=== PATIENT | female | born 1940 | race Caucasian/White ===

== ENCOUNTER → 2018-09-05 14:47 | Outpatient (CLI) | payer MEDICARE, SELFPAY ==
--- NOTE | 2018-09-05 | OV.WND_ITS ---
Progress Note Details Patient Name: Pippa Groves Patient Number: [id number] PatientPatientDate: 09/05/2018 Clinician: Henrietta aDi Physician / Utility Worker Film Processing: Marbin Vaughn SUBJECTIVE Chief Complaint This information was obtained from the patient Pressure ulcers on buttocks. Allergies penicillin V potassium (Severity: Severe, Reaction: hives), simvastatin ( Severity: Moderate, Reaction: headache), Demerol (Severity: Severe, Reaction: hypotension) HPI This information was obtained from the patient 09/05/18. Seen by Dr. Vaughn. The patient's new to our clinic and presents with two gluteal pressure ulcers that have been present for about one year. She reports pain at the ulcer sites and spends much of her day sitting due to morbid obesity and pain in her knees when standing. Her caregiver feels the ulcers actually appear to be improving recently since the patient's spending more time in her hospital bed and less in her chair. Family History This information was obtained from the patient Cancer - Mother, Diabetes - Father, Hypertension - Mother, Father, Sibling, Kidney Disease - Father Social History This information was obtained from the patient Former smoker - Quit in 1981, Alcohol Use - None, Caffeine Use, Children, Lives in - Private home with daughter, Self Care and Mobility - Daughter is caregiver Past Medical History This information was obtained from the patient Patient has a medical history of: Hypertension Severe Osteoarthritis Obesity Asthma Hyperlipidemia Sciatica Polymyalgia Rheumatica Surgical History This information was obtained from the patient Patient has a surgical history of: Total abdominal hysterectomy Appendectomy Complaints and Symptoms This information was obtained from the patient Patient complains of: General Notes: I have reviewed and concur with the Review of Systems and Past Family Social History documents completed by the clinician, I have reviewed and concur with the Wound Assessment document completed by the clinician Integumentary (Hair/Skin/Nails): Open Sore Musculoskeletal: Assistive Devices, Muscle Weakness Prior Wound History: Drainage, Pain Patient denies complaints or symptoms related to: Neurological: Loss of Protective Sensation Respiratory: Shortness of Breath General Notes: up to date. Medications morphine ER 30 mg tablet,extended release oral 1 1 tablet extended release oral take at bedtime nystatin 100,000 unit/mL oral suspension oral 1 1 suspension oral twice daily Claritin 10 mg tablet oral 1 1 tablet oral once daily Atacand 16 mg tablet oral 1 1 tablet oral once daily albuterol sulfate HFA 90 mcg/actuation aerosol inhaler inhalation 1 1 HFA aerosol inhaler inhalation PRN amlodipine 10 mg tablet oral 1 1 tablet oral once daily cranberry 400 mg capsule oral 1 1 capsule oral hydrocodone 10 mg-acetaminophen 325 mg tablet oral 1 1 tablet oral every 6 hours as needed metronidazole 0.75 % topical gel topical 1 1 gel topical hydrochlorothiazide 25 mg tablet oral 1 1 tablet oral once daily gentamicin 0.1 % topical ointment topical ointment topical once daily for 7 days for infected ulcer Vitamin D3 1,000 unit capsule oral 1 1 capsule oral once daily OBJECTIVE Constitutional Well developed. Alert. Clean appearing.. Temperature: 98.4 ?F (36.89 ?C), Pulse : 78 bpm, Respiratory Rate: 16 breaths/min, Blood Pressure: 122/74 mmHg, Pulse Oximetry: 94 %. Gastrointestinal (GI): Obese. Nondistended.. Integumentary (Hair, Skin) No periwound erythema, warmth, or significant drainage. No periwound rashes appreciated or noted otherwise.. Refer to appropriate clinician wound documentation for this visit; right and left gluteal pressure ulcers extend to subcut with bases partially covered with pink granulation, remainder fibrin and slough. Wound #1 Right Buttock is a chronic Stage 2 Pressure Injury Pressure Ulcer and has received a status of Not Healed. Initial wound encounter measurements are 0.4cm length x 0.2cm width x 0.1cm depth, with an area of 0.08 sq cm and a volume of 0.008 cubic cm. No tunneling has been noted. No sinus tract has been noted. No undermining has been noted. There was no drainage noted. The wound margin is attached. Wound bed has No epithelialization, No eschar, Yes slough, No granulation. The periwound skin texture is normal. The periwound skin moisture is normal. The periwound skin color is normal. The temperature of the periwound skin is WNL. Periwound skin does not exhibit signs or symptoms of infection. Local Pulse is N/A. General Notes: Covered in dried exudate. Wound #2 Left Buttock is a chronic Stage 2 Pressure Injury Pressure Ulcer and has received a status of Not Healed. Initial wound encounter measurements are 0.4cm length x 0.3cm width x 0.3cm depth, with an area of 0.12 sq cm and a volume of 0.036 cubic cm. No tunneling has been noted. No sinus tract has been noted. No undermining has been noted. There is a moderate amount of serous drainage noted which has no odor. The wound margin is attached. Wound bed has No epithelialization, No eschar, Yes slough, Yes pink, firm granulation. The periwound skin texture is normal. The periwound skin moisture is normal. The periwound skin color is normal. The temperature of the periwound skin is WNL. Periwound skin does not exhibit signs or symptoms of infection. Local Pulse is N/A. Neurological: Cranial nerves grossly intact with symmetric function normal by informal observation.. ASSESSMENT Active Problems ICD-10 (Encounter Diagnosis) L89.43 - Pressure ulcer of contiguous site of back, buttock and hip, stage 3 (Encounter Diagnosis) E66.01 - Morbid (severe) obesity due to excess calories PLAN Wound Orders: Wound #1 Right Buttock Anesthetic Topical Xylocaine to wound bed. - In clinic only. Cleanser Cleanse Wound: - Normal saline and gauze, may use distilled water at home. May Shower. - Wash well with distilled water and gauze when ever soiled. Topical Treatments Antibiotic/Antimicrobial Ointment/Cream. - Gentamicin ointment. Dressings Cover and secure with: - Silicone bordered foam. KerraMax ordered through your insurance. Change Dressing: - Every other day or more as needed if dressing comes off or gets soiled. Additional Orders: Topical Treatments Barrier ointment to protect surround skin. - Zinc based barrier cream can be used in groin area as needed. Off-Loading Wheelchair Cushion. - EHOB cushion given to patient in clinic. Brochure for other EHOB products given. Turn every 2 hours. Avoid position directing pressure to Wound site. Limit side lying to 30 degree tilt. Limit HOB elevation to 30 degrees in bed. - Prop yourself up with pillows while in bed. Follow-Up Appointments Return Appointment: - - One week. Other information: If you develop fever, chills, increased pain, drainage, redness or swelling please call our office. If after hours, respond to the ER. Should you experience any significant changes in your wound(s) or have any questions regarding your home care instructions please contact the wound center @ [phone]. If after hours, contact your primary care physician or go to the hospital emergency room. Scribing Attestation I attest, as the nurse, that I scribed these orders for the physician. Laboratory: Culture Wound Medications prescribed: gentamicin - topical 0.1 % ointment once daily for 7 days for infected ulcer starting 09/05/2018 General Notes: Will call with culture results if any oral antibiotics are required. I've reviewed the clinician's documentation and agree with the evaluation and plan as written. Also, I've cultured the left gluteal ulcer and started treating with topical gentamicin. I've also reinforced the need to optimize offloading measures both while in her wheelchair and in bed. Electronic Signature(s) Signed By: Date: Marbin Vaughn MD 09/06/2018 06:59:08 Entered By: Marbin Vaughn on 09/06/2018 06:28:02
== END ==
PROVIDERS: Family Provider Internal Medicine; PCP Internal Medicine; Visit Provider Internal Medicine
DX: L89.312 Pressure ulcer of right buttock, stage 2 (principal); L89.322 Pressure ulcer of left buttock, stage 2; E66.01 Morbid (severe) obesity due to excess calories; I10 Essential (primary) hypertension
CPT/HCPCS: 87070; 87075; 87077; 87147; 87186; 87205; 99214

== ENCOUNTER → 2020-10-03 14:52 | Outpatient (ROUT) | payer MEDICARE, SELFPAY ==
[2020-10-03 15:15] LABS: Add Manual Diff / Slide Review NO; Basophils Absolute Auto 100 /uL (0-100); Basophils Percent Auto 0.9 % (0-2); Eosinophils Absolute Auto 400 /uL (0-450); Eosinophils Percent Auto 5.2 % (2-4); Hematocrit 38.1 % (36-46); Hemoglobin 12.6 g/dL (12.0-16.0); Lymphocytes Absolute Auto 1600 /uL (1100-4500); Lymphocytes Percent Auto 24.3 % (25-40); Mean Corpuscular Hemoglobin 29.1 PG (26-34); Mean Corpuscular Volume 88.2 fL (80-100); Monocytes Absolute Auto 500 /uL (0-900); Neutrophils Absolute Auto 4200 /uL (1500-7000); Neutrophils Percent Auto 62.6 % (50-75); Platelet Count 261 X10^3/uL (150-400); Red Blood Cell Count 4.32 X10^6/uL (4.0-5.2); Red Cell Distribution Width 13.7 % (11.6-14.8); White Blood Cell Count 6.7 X10^3/uL (4.5-11.0)
[2020-10-03 15:21] LABS: Alanine Aminotransferase 8 IU/L (<35); Albumin 3.7 g/dL (3.5-5.0); Alkaline Phosphatase 85 U/L (38-126); Aspartate Aminotransferase 20 IU/L (14-36); BUN Creatinine Ratio 23.4 (6-22); Bilirubin Total 0.6 mg/dL (0.2-1.3); Blood Urea Nitrogen 15 mg/dL (7-17); Calcium 9.5 mg/dL (8.4-10.2); Carbon Dioxide 39 mmol/L (22-32); Chloride 93 mmol/L (98-107); Estimated Glomerular Filt Rate > 60.0 mL/min (>60); Globulin 3.6 g/dL (1.7-4.1); Glucose 101 mg/dL (80-110); HEMOLYSIS 21 (0-50); Potassium 3.5 mmol/L (3.4-5.1); Sodium 134 mmol/L (137-145); Total Protein 7.3 g/dL (6.3-8.2)
== END ==
PROVIDERS: Family Provider Internal Medicine; PCP Internal Medicine; Visit Provider Internal Medicine
DX: E66.9 Obesity, unspecified (principal); I10 Essential (primary) hypertension
CPT/HCPCS: 80053; 85025

== ENCOUNTER → 2021-02-12 09:53 | Outpatient (CLI) | payer MEDICARE, SELFPAY ==
[2021-02-12] MEDS: COVID-19 VACC #1, MRNA(MOD) 100 MCG/0.5 ML VIAL IM (10:04)
== END ==
PROVIDERS: Family Provider Internal Medicine; PCP Internal Medicine; Visit Provider Internal Medicine
DX: Z23 Encounter for immunization (principal)
CPT/HCPCS: 0011A; 91301

== ENCOUNTER → 2021-03-12 09:52 | Outpatient (CLI) | payer MEDICARE, SELFPAY ==
[2021-03-12] MEDS: COVID-19 VACC #2, MRNA(MOD) 100 MCG/0.5 ML VIAL IM (09:59)
== END ==
PROVIDERS: Family Provider Internal Medicine; PCP Internal Medicine; Visit Provider Internal Medicine
DX: Z23 Encounter for immunization (principal)
CPT/HCPCS: 0012A; 91301